=== PATIENT | male | born 1970 | race American Indian/Alaskan Native ===

== ENCOUNTER 2025-02-28 09:12 | Emergency (ER) | payer OTHER ==
[~2025-02-28] VITALS: Ht 177.8 cm; Wt 72.6 kg
[2025-02-28] MEDS ORDERED: NEXIUM10 MG PO (09:41)
[2025-02-28 11:18] LABS: BASO % 0.3 % (0.1-1.2); EOS # 0.06 (0.04-0.54); EOS % 1.0 % (0.7-7.0); LYMPH # 1.50 (1.18-3.74); LYMPH % 26.2 % (19.3-53.1); MEAN PLATELET VOLUME 10.60 fl (9.4-12.4); MONO # 0.46 (0.24-0.82); MONO % 8.0 % (4.7-12.5); NEUT # 3.67 (1.56-6.13); NEUT % 64.3 % (34.0-71.1); RED CELL DISTRIBUTION WIDTH 13.4 % (11.6-14.4)
[2025-02-28 11:27] LABS: URINE APPEARANCE Clear; URINE BILIRRUBIN Negative (NEGATIVE); URINE BLOOD Negative; URINE COLOR Yellow; URINE GLUCOSE Negative (NEGATIVE); URINE KETONE Negative (NEGATIVE); URINE LEUKOCYTE Negative; URINE NITRATE Negative; URINE PROTEIN Negative (NEGATIVE); URINE UROBILINOGEN 0.2 E.U./dl
[2025-02-28 11:34] LABS: URINE BACTERIA 1.2 uL (0.0-1933); URINE CAST 0.00 uL (0.0-1.40); URINE EPITHELIAL CELLS 0.4 uL (0.0-38.8); URINE RBC 0.1 uL (0.0-20.8); URINE WBC 1.5 uL (0.0-23.2)
== END 2025-02-28 13:44 | disposition home or self-care (01) ==
LOC: ER 09:12
PROVIDERS: General Practice
DX: L98.8 Other specified disorders of the skin and subcutaneous tissue (principal); K21.9 Gastro-esophageal reflux disease without esophagitis